=== PATIENT | female | born 1990 | race Caucasian/White ===

== ENCOUNTER 2016-11-24 14:18 | Emergency (ER) | payer SELFPAY ==
[~2016-11-24] VITALS: Ht 157.5 cm; Wt 68.2 kg
[2016-11-24 14:25] VITALS: BP 143/86
[2016-11-24] MEDS ORDERED: PNV1TAB.3 PO (14:31)
[2016-11-24] MEDS ORDERED: RANI150T7 PO (14:31)
== END 2016-11-24 15:13 | disposition home or self-care (01) ==
LOC: EMS 14:23
DX: O26.92 Pregnancy related conditions, unspecified, second trimester (principal); K04.7 Periapical abscess without sinus; K02.9 Dental caries, unspecified; Z3A.13 13 weeks gestation of pregnancy
CPT/HCPCS: 99283

== ENCOUNTER 2017-02-23 09:09 | Emergency (ER) | payer MEDICAID ==
[~2017-02-23] VITALS: Ht 160 cm; Wt 63.6 kg
[~2017-02-23 09:09] MED LIST: PNV1TAB.3 PO; RANI150T7 PO
[2017-02-23] MEDS ORDERED: CefTRIAXone 1 GM/DEXTROSE 50 ML IV ONE (10:15)
[2017-02-23 10:35] VITALS: BP 109/72
[2017-02-23 10:37] LABS: BASOPHILS # (AUTO) 0.09 K/uL (0.00-0.20); BASOPHILS % (AUTO) 0.6 % (0.0-2.0); EOSINOPHILS # (AUTO) 0.08 K/uL (0.00-0.70); EOSINOPHILS % (AUTO) 0.56 % (1.0-6.0); HEMATOCRIT 37.1 % (36-46); HEMOGLOBIN 12.5 g/dL (12.0-16.0); LYMPHOCYTES # (AUTO) 1.6 K/uL (1.0-4.8); LYMPHOCYTES % (AUTO) 10.6 % (22.0-44.0); MEAN CORPUSCULAR HEMOGLOBIN 32.4 pg (26.0-34.0); MEAN CORPUSCULAR HGB CONC 33.8 G/dL (31.0-37.0); MEAN CORPUSCULAR VOLUME 96 fL (80-100); MONOCYTES # (AUTO) 0.9 K/uL (0.1-1.0); MONOCYTES % (AUTO) 6.3 % (2.0-9.0); NEUTROPHILS # (AUTO) 12.3 K/uL (1.8-7.7); PLATELET COUNT (AUTO) 218 K/uL (150-450); RED BLOOD CELL COUNT(AUTO) 3.87 MIL/uL (4.00-5.20); RED CELL DISTRIBUTION WIDTH 13.5 % (11.5-14.5)
== END 2017-02-23 11:43 | disposition home or self-care (01) ==
LOC: EMS 09:13
DX: O26.892 Other specified pregnancy related conditions, second trimester (principal); K04.7 Periapical abscess without sinus; Z3A.24 24 weeks gestation of pregnancy
CPT/HCPCS: 36415; 85025; 86140; 96374; 99284; J0696

== ENCOUNTER 2020-05-04 17:14 | Emergency (ER) | payer MEDICAID ==
[~2020-05-04] VITALS: Ht 162.6 cm; Wt 72.7 kg
[~2020-05-04 17:14] MED LIST changes: +DOCU-275 PO; +FERR-89 PO; +IBUP-2071 PO; +PERCT PO; -RANI150T7 PO
[2020-05-04 20:45] VITALS: BP 123/83
== END 2020-05-04 20:51 | disposition home or self-care (01) ==
LOC: EMS 17:14
DX: G47.62 Sleep related leg cramps (principal); M79.89 Other specified soft tissue disorders; F41.9 Anxiety disorder, unspecified; F32.9 Major depressive disorder, single episode, unspecified
CPT/HCPCS: 93971; Z7502

== ENCOUNTER 2023-04-15 10:08 | Emergency (ER) | payer MEDICAID ==
[~2023-04-15] VITALS: Ht 167.6 cm; Wt 4.5 kg
[~2023-04-15 10:08] MED LIST changes: -DOCU-275 PO; +DOCU-385 PO; -FERR-89 PO; +FERR325T27 PO; +IBUP-1493 PO; -IBUP-2071 PO
[2023-04-15 10:12] VITALS: TEMP 98.9
[2023-04-15] MEDS ORDERED: CEPHALEXIN MONOHYDRATE 500 MG CAPSULE PO ONE (10:45)
[2023-04-15] MEDS ORDERED: LIDOCAINE 1% 10 ML VIAL SQ ONE (10:45)
[2023-04-15] MEDS ORDERED: HYDROCODONE/ACETAMINOPHEN 5-325 MG TABLET PO ONE (10:45)
[2023-04-15] MEDS ORDERED: IBUP-1554 PO (12:32)
[2023-04-15] MEDS ORDERED: HYDR-4072 PO (12:32)
[2023-04-15] MEDS ORDERED: CEPH-558 PO (12:32)
[2023-04-15 12:40] VITALS: BP 140/96; PULSE 90; RESP 16
== END 2023-04-15 12:59 | disposition home or self-care (01) ==
LOC: EMS 10:11
DX: S60.454A Superficial foreign body of right ring finger, initial encounter (principal); L03.011 Cellulitis of right finger; F41.9 Anxiety disorder, unspecified; F32.A Depression, unspecified; Z98.890 Other specified postprocedural states; W45.8XXA Other foreign body or object entering through skin, initial encounter; Y93.89 Activity, other specified; Y92.89 Other specified places as the place of occurrence of the external cause; Y99.8 Other external cause status
CPT/HCPCS: 10080; 99283; J3490

== ENCOUNTER 2025-06-21 20:45 | Emergency (ER) | payer MEDICAID ==
[~2025-06-21] VITALS: Ht 160 cm; Wt 84.1 kg
[~2025-06-21 20:45] MED LIST changes: +CEPH-558 PO; -DOCU-385 PO; -FERR325T27 PO; +HYDR-4072 PO; -IBUP-1493 PO; +IBUP-1554 PO; -PERCT PO; -PNV1TAB.3 PO
[2025-06-21 20:52] VITALS: BP 120/77; PULSE 73; RESP 16; TEMP 98.4; O2SAT 98
[2025-06-21 22:31] LABS: PLATELET COUNT (AUTO) 351 K/uL (150-450); RED BLOOD CELL COUNT(AUTO) 4.74 MIL/uL (4.00-5.20); RED CELL DISTRIBUTION WIDTH 15.3 % (11.5-14.5); WHITE BLOOD COUNT (AUTO) 10.9 K/uL (4.5-11.0)
[2025-06-21 22:44] LABS: CALCIUM, TOTAL 9.6 mg/dL (8.8-10.5); CREATININE 0.90 mg/dL (0.60-1.30); GLOMERULAR FILTR. RATE CALC > 60 mL/min (>60); GLUCOSE,RANDOM 99 mg/dL (70-110); SODIUM SERUM 137 mmol/L (136-145); UREA NITROGEN, BLOOD 11 mg/dL (7-18)
[2025-06-21 22:51] LABS: TROPONIN I-HIGH SENSITIVITY Less Than 4 ng/L (<51)
[2025-06-21] MEDS ORDERED: ACET-3385 PO (23:11)
== END 2025-06-22 00:18 | disposition home or self-care (01) ==
LOC: EMS 20:57
DX: R07.89 Other chest pain (principal); M25.511 Pain in right shoulder; M25.512 Pain in left shoulder; R68.84 Jaw pain; F41.9 Anxiety disorder, unspecified; F32.A Depression, unspecified; Z98.890 Other specified postprocedural states; Z79.899 Other long term (current) drug therapy
CPT/HCPCS: 71045; 80048; 83690; 84484; 84703; 85025; 93005; 99285; 36415-L1; 36415-TC

== ENCOUNTER 2025-07-02 20:58 | Emergency (ER) | payer MEDICAID ==
[~2025-07-02] VITALS: Ht 160 cm; Wt 84.1 kg
[~2025-07-02 20:58] MED LIST changes: +ACET-3385 PO
[2025-07-02 22:54] VITALS: BP 132/81; PULSE 109; RESP 20; TEMP 98.605328; O2SAT 98
[2025-07-02 22:54] LABS: PLATELET COUNT (AUTO) 264 K/uL (150-450); RED BLOOD CELL COUNT(AUTO) 4.36 MIL/uL (4.00-5.20); RED CELL DISTRIBUTION WIDTH 15.7 % (11.5-14.5); WHITE BLOOD COUNT (AUTO) 8.6 K/uL (4.5-11.0)
[2025-07-02 23:04] LABS: CALCIUM, TOTAL 9.2 mg/dL (8.8-10.5); CREATININE 0.80 mg/dL (0.60-1.30); GLOMERULAR FILTR. RATE CALC > 60 mL/min (>60); GLUCOSE,RANDOM 93 mg/dL (70-110); SODIUM SERUM 137 mmol/L (136-145); UREA NITROGEN, BLOOD 10 mg/dL (7-18)
[2025-07-02 23:15] LABS: ASPARTATE AMINOTRANSFERASE 16.0 U/L (15-37); TOTAL PROTEIN, SERUM 7.7 g/dL (6.4-8.2)
== END 2025-07-03 00:39 | disposition home or self-care (01) ==
LOC: EMS 20:58
DX: I89.0 Lymphedema, not elsewhere classified (principal); K04.7 Periapical abscess without sinus; F41.9 Anxiety disorder, unspecified; F32.A Depression, unspecified; Z98.890 Other specified postprocedural states; Z79.899 Other long term (current) drug therapy
CPT/HCPCS: 80048; 80076; 84439; 84443; 84703; 85025; 99283